=== PATIENT | male | born 1935 | race Caucasian/White ===

== ENCOUNTER 2017-04-25 16:35 | Emergency (ER) | payer MEDICARE ==
[2017-04-25] MEDS ORDERED: METHOTREXATE (16:54)
[2017-04-25] MEDS ORDERED: METOPROLOL PO (16:54)
[2017-04-25] MEDS ORDERED: NEXIUM PO (16:55)
[2017-04-25] MEDS ORDERED: ATORVASTATIN PO (16:55)
[2017-04-25] MEDS ORDERED: FOLIC ACID PO (16:55)
[2017-04-25] MEDS ORDERED: HYOSCYAMINE PO (16:56)
[2017-04-25] MEDS ORDERED: LISINOPRIL PO (16:56)
[2017-04-25] MEDS ORDERED: OMEGA 3 (16:57)
[2017-04-25] MEDS ORDERED: ASPIRIN PO (16:57)
== END 2017-04-25 17:51 | disposition home or self-care (01) ==
LOC: SED 16:35
DX: L50.0 Allergic urticaria (principal); I10 Essential (primary) hypertension; E78.5 Hyperlipidemia, unspecified; M06.9 Rheumatoid arthritis, unspecified
CPT/HCPCS: 99283